=== PATIENT | male | born 1945 | race Caucasian/White ===

== ENCOUNTER 2016-11-11 23:14 | Inpatient (IN) | payer MEDICARE, OTHER ==
--- NOTE | ~2016-11-11 | DS ---
Discharge Summary [facility] [address] [place]. [address] NAME: LUCILA RAMOS JUNIOR : 43 STATUS : DIS IN PAT#: [id number] AGE: 71 ADM/REG DATE : 11/11/16 MR#: [id number] REPORT SERV DATE: 11/18/16 DICTATED BY: ANGELO FOREMAN DATE: 11/17/16 REPORT STATUS : Draft TRANSCRIBED BY: MODL DATE: 11/17/16 ADMISSION DATE: 11/11/2016 DISCHARGE DATE: 11/17/2016 CONSULTANTS: 1. Yasemin Manning MD, Interventional Pulmonary. 2. Enzo Padilla MD, Medical Oncology. 3. Cristina Vyas MD, Critical Care. 4. Manuel Brown MD, Vascular. 5. Shruthi Mg MD. DISCHARGE DIAGNOSES: 1. 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 2. Severe chronic obstructive pulmonary disease with exacerbation. 3. Acute hypoxic respiratory failure. 4. Abdominal aortic aneurysm. 5. Paroxysmal atrial fibrillation with rapid ventricular response. 6. T10 compression fracture. 7. Severe protein-calorie malnutrition. 8. History of coronary artery disease with previous PCI. 9. Iron deficiency anemia. 10.Previous nervous breakdown. HISTORY: This gentleman has had about four months of increasing shortness of breath with dyspnea on exertion, worsening cough, and starting to have hemoptysis up to a cup every day for the last couple of months. He has also had 15 to 25 pounds of unplanned weight loss in the last four months with subjective fever and chills. He also developed pain in his midback. He was resistant to coming to the hospital but finally did present to the hospital at [facility]. He was noted to have hypoxia with room air saturation 88%, white count 11.7, chest x-ray showing a right upper lobe cavitary mass. His initial blood gas was done in the emergency room on 32% oxygen, pH 7.35, PCO2 of 56, PO2 of 73, bicarbonate 30.5. Further imaging included a CT of the chest with contrast on 11/12/2016 showing right upper lobe 9 x 7 x 7.5 cavitary mass; small subpleural posterior basilar 0.6 cm diameter nodule seen on the CT; mediastinal adenopathy, 2.9 x 3.9 prevascular and right paratracheal; and a 2.3 x 1.9 cm nodule as well. Also, severe panacinar emphysema and an acute or subacute T10 compression fracture, and three-vessel coronary artery disease with evidence for stenting. HOSPITAL COURSE: Our admitting partner put him on Solu-Medrol, oxygen and breathing treatments, Rocephin and azithromycin, and ordered a sputum for AFB. Sputum for AFB on three occasions were negative. He was seen by Pulmonary, Dr. Manning, and Isaac Parham working with him. The patient was then felt a candidate for bronchoscopy, which was done by Dr. Manning with EBUS on 11/13/2016, which revealed a significant right upper lobe mass. The preliminary biopsy findings were squamous cell cancer. Postprocedure, the patient was felt to need to stay on Discharge Summary [address] [address] NAME: LUCILA RAMOS RITO : 43 STATUS : DIS IN PAT#: [id number] AGE: 71 ADM/REG DATE : 11/11/16 MR#: [id number] REPORT SERV DATE: 11/18/16 DICTATED BY: ANGELO FOREMAN DATE: 11/17/16 REPORT STATUS : Draft TRANSCRIBED BY: PRAKASH DATE: 11/17/16 the ventilator and moved to the intensive care where he was then followed by Dr. Vyas. The patient was easily extubated within the next day or so and able to move back out to the medical floor. Pathology did confirm squamous cell cancer of the lung. Dr. Enzo Padilla has seen the patient, wants to do an outpatient PET to complete part of the staging and then he will make decisions with the patient on therapy. Plain views of the abdomen revealed evidence of an abdominal aortic aneurysm. The radiologist estimated the dimensions up to 6.9 cm. Vascular Surgery, Dr. Manuel Brown, saw the patient. Dr. Brown indicated that before any intervention he wanted to make sure that the patient had responded to cancer therapy and had a prognosis suggesting a greater than 2- year life expectancy, then he would consider endovascular repair. The patient's hemoptysis resolved, his shortness of breath improved, but he was found to need continuous oxygen at 4 L nasal cannula. Those arrangements with Home Equipment have been made. Home Health has already been set up as well. The patient is ambulatory. His appetite is good. His T10 compression fracture pain is easily controlled by tramadol at this point in time. He has had paroxysms of atrial fibrillation with rapid ventricular response. On a beta- kelvin, it has improved. He is not sure if he has had this before. He has seen Dr. Mcmahon of Cardiology in the past. We are not recommending anticoagulation at the moment because of his untreated squamous cell cancer with recent hemoptysis. In the future, if he responds to therapy and has not had hemoptysis, anticoagulation risk versus benefit can be reassessed by his physician team. DISCHARGE MEDICATIONS: Lipitor 80 mg daily; Coreg 3.125 mg twice a day; Nu-Iron 150 mg p.o. b.i.d.; melatonin 3 mg over the counter at bedtime p.r.n. insomnia; nicotine patch over the counter 21 mg size, with strong encouragement to discontinue all nicotine; Florastor over the counter b.i.d. for two weeks; Anoro Ellipta 62.5/25 one puff daily; prednisone 20 mg daily for 5 more days; Pulmicort Respules nebulized b.i.d.; albuterol nebulized q.i.d. p.r.n. shortness of breath; Tylenol 650 q.4 hours p.r.n. mild pain; tramadol 50 mg q.i.d. p.r.n. intense pain, #25, no refill; aspirin 81 mg daily; nitroglycerin 0.4 mg sublingual p.r.n. chest pain. DISCHARGE INSTRUCTIONS: He is to follow up with Dr. Enzo Padilla in the office in the next week and there will be an outpatient PET scan. He can longitudinally follow up with Pulmonary, Dr. 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 Mcmahon; and if he is deemed a candidate, with vascular surgeon, Dr. Manuel Brown. He is going to be on 4 L oxygen continuously. I spent 44 minutes today with the patient in discharge planning. DICTATED BY: Angelo Foreman M.D. Discharge Summary [address] [address] NAME: LUCILA RAMOS JUNIOR : 43 STATUS : DIS IN [facility]#: [id number] AGE: 71 ADM/REG DATE : 11/11/16 MR#: [id number] REPORT SERV DATE: 11/18/16 DICTATED BY: ANGELO FOREMAN DATE: 11/17/16 REPORT STATUS : Draft TRANSCRIBED BY: PRAKASH DATE: 11/17/16 DIRK/PRAKASH Angelo Foreman M.D. / [id number] CC: Brandy Vazquez M.D. Darrell Johnson, M.D. Sachin V Phade, M.D. Pamela Sud, M.D.
--- NOTE | ~2016-11-11 | CN ---
Consultation Report [facility] [address] [place] [place]. [address] NAME: LUCILA RAMOS JUNIOR : 43 STATUS : DIS IN PAT#: [id number] AGE: 71 ADM/REG DATE : 11/11/16 MR#: [id number] REPORT SERV DATE: 11/18/16 DICTATED BY: MANUEL BROWN DATE: 11/15/16 REPORT STATUS : Draft TRANSCRIBED BY: MODАндрей DATE: 11/15/16 CONSULT NOTE DATE OF CONSULTATION: 11/15/2016 REASON FOR CONSULTATION: Evaluation for abdominal aortic aneurysm. INTERVENTIONAL SILO ERECTOR: Dr. Manning. BRIEF HISTORY: The patient is a 71-year-old gentleman with past medical history significant for tobacco abuse, coronary artery disease, status post myocardial infarction and hypertension, who was admitted to the hospital with weight loss, cough, and shortness of breath. He underwent workup and was found to have a cavitary right lung mass. He was diagnosed with lung cancer and it is thought that he has stage III or stage IV disease. In his workup, he was found to have an aortic aneurysm on a KUB. I was consulted for evaluation and treatment. The patient denies any complaints now. His coughing has improved. PAST MEDICAL HISTORY: COPD, coronary artery disease, and hypertension. SURGICAL HISTORY: Includes knee surgery and skin cancer. ALLERGIES: NONE. MEDICATIONS: Documented on the chart and were reviewed. SOCIAL HISTORY: He is a smoker. He quit drinking. He denies any drug use. His family is supportive and involved in his care. FAMILY HISTORY: Black lung. REVIEW OF SYSTEMS: A complete review of systems was performed and is negative with the exception of the aforementioned findings. PHYSICAL EXAMINATION: VITAL SIGNS: Documented on the chart and were reviewed. GENERAL: The patient is awake, alert, and oriented, in no apparent distress. HEAD AND NECK: Benign without any carotid bruits. HEART: Regular rate and rhythm. LUNGS: Clear, but he does have pursed lip breathing. ABDOMEN: Soft, nontender, nondistended with an easily palpable aortic aneurysm. EXTREMITIES: He has a normal complement of upper extremity pulses without any significant edema or ischemic ulcerations. He has palpable femoral, popliteal, and pedal pulses. He has no significant edema or ischemic ulcerations. Consultation Report [facility] [address] [place] [place]. [address] NAME: LUCILA RAMOS JUNIOR : 41 STATUS : DIS IN PAT#: [id number] AGE: 71 ADM/REG DATE : 11/11/16 MR#: [id number] REPORT SERV DATE: 11/18/16 DICTATED BY: MANUEL BROWN DATE: 11/15/16 REPORT STATUS : Draft TRANSCRIBED BY: MODL DATE: 11/15/16 NEUROLOGIC: Grossly nonfocal. MUSCULOSKELETAL: Otherwise benign. LABORATORY DATA: His laboratory investigations are fairly unremarkable. I reviewed his KUB and noted his aortic aneurysm. On x-ray, it was measured as 6.9 cm, although this is not often an accurate assessment. His CT imaging of his chest does not show any aneurysmal change of his thoracic aorta. His renal arteries are visualized, and there was a segment of infrarenal aorta that appears normal. ASSESSMENT AND PLAN: It looks like this gentleman has lung cancer that is likely stage III or stage IV. He was found to have an abdominal aortic aneurysm of unclear size, but that is likely greater than 5.5 cm in size. I introduced the risks, benefits, and alternatives of endovascular aortic aneurysm repair as well as open aneurysm repair. We talked about medical management, and we talked about his lung cancer. If his lung cancer has a poor prognosis or he would necessitate an open aneurysm repair, he needs simply an aspirin, statin, and smoking cessation. A CT, of course, would need to be performed to definitively set this plan. Having said that, the preliminary imaging would suggest that maybe he is indeed a candidate for endovascular repair. If his lung cancer prognosis is not that poor, we would simply have to weigh the risks of his aneurysm rupturing and him dying versus the mortality risk of his lung cancer. We have to weigh the morbidity as well as the mortality and ultimately helping the patient make the right decision. I will be available to follow along to help guide the therapy. The patient and his family seem to be fairly realistic about what is going on. CARPENTER PROTOTYPE/MODАндрей Manuel Brown M.D. / [id number] CC: Brandy Vazquez M.D.
--- NOTE | ~2016-11-11 | CN ---
Consultation Report [facility] [address] [place]. [address] NAME: PAUL HONEYCUTT JUNIOR : 43 STATUS : ADM IN [facility]#: [id number] AGE: 71 ADM/REG DATE : 11/11/16 MR#: [id number] REPORT SERV DATE: 11/12/16 DICTATED BY: BAKARI EDWARDS DATE: 11/12/16 REPORT STATUS : Draft TRANSCRIBED BY: MODL DATE: 11/12/16 CONSULTATION DATE OF CONSULTATION: 11/12/2016 CHIEF COMPLAINT: Shortness of breath in a patient with a right upper lobe cavitary lesion. HISTORY OF PRESENT ILLNESS: Mr. Paul Honeycutt is a cachectic-appearing 71-year-old white male with a past medical history significant for clinical COPD, ongoing tobacco dependency, and coronary artery disease, who presents to [facility] with complaints of dyspnea and weight loss. It should be noted that Mr. Honeycutt has not been hospitalized recently. The patient is not currently established with a photographic equipment technician. He does not usually require supplemental oxygen. He is on no nebulized medications. The patient has smoked cigarettes up until the time of presentation. He has smoked at least a pack a day for the last 60 years. He describes his exercise tolerance as being limited as of late. The patient states that over the last four to five months, he has had worsening dyspnea. During that time, he developed a cough that produced some hemoptysis. Despite this finding, he did not pursue medical care. Eventually, his hemoptysis decreased and he began to produce some dark-colored sputum. Also during this time, he had weight loss. He has also had subjective fever and chills. Eventually, his symptoms became persistent enough that he eventually presented to [facility]'s Emergency Room. Upon arrival, he was found to have a white blood cell count of 11,700. He eventually underwent a chest x-ray which revealed a right upper lobe cavitary mass. He was later sent to the CT scanner for a better evaluation of his right upper lobe lung mass. During this process when lying flat, he became extremely dyspneic. He did undergo arterial blood gas sampling, which demonstrated pH of 7.29, PaCO2 of 65, PaO2 of 56, and a bicarb of 30.6, on 44% FiO2. The patient was briefly placed on BiPAP therapy with improvement in his pulmonary status. For the aforementioned reasons, he has been referred to the Pulmonary Service for further assessment. Currently, Mr. Honeycutt is on a BiPAP with minimal settings and asking for the mass to be removed. He does confirm continuing production of brown sputum. He states that his shortness of breath has improved. He denies any wheezing in his chest. He denies any recent sick contacts. He denies any recent exposures to birds, mold, or fungus. He has not been institutionalized recently nor had outside travel. He does have known COPD and ongoing tobacco abuse. The patient does have known coronary artery disease with stenting. He currently denies any murmurs, angina, or palpitations. He does have some difficulty lying flat. In regard to constitutional symptoms, he has had subjective fevers in the past, but none recently. He denies any nausea or vomiting. He has some dull chest pain in the right. He Consultation Report [address] [address] NAME: PAUL HONEYCUTT RITO : 43 STATUS : ADM IN [facility]#: [id number] AGE: 71 ADM/REG DATE : 11/11/16 MR#: [id number] REPORT SERV DATE: 11/12/16 DICTATED BY: BAKARI EDWARDS DATE: 11/12/16 REPORT STATUS : Draft TRANSCRIBED BY: PRAKASH DATE: 11/12/16 currently denies any abdominal pain or edema. PAST MEDICAL HISTORY: 1. Coronary artery disease, status post stenting, clinical COPD. 2. Tobacco dependency-complicated. 3. Hypertension. PAST SURGICAL HISTORY: 1. Knee surgery. 2. Skin cancer excision. FAMILY HISTORY: The patient states that his father had lung cancer. SOCIAL HISTORY: The patient lives in [place], [place]. He is retired. 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 He has a son who is involved with his health care. TOBACCO/ALCOHOL: As previously mentioned, the patient smoked up until the time of presentation. He has smoked at least a pack a day for the last 60 years. He denies any recent alcohol or illicit drug use. MEDICATIONS: 1. Albuterol. 2. Aspirin 81 mg. 3. Atorvastatin 80 mg. 4. Carvedilol 3.125 mg. ALLERGIES: THE PATIENT HAS NO KNOWN DRUG ALLERGIES. REVIEW OF SYSTEMS: A complete review of systems was performed. The pertinent positives and negatives contained within the body of the HPI. PHYSICAL EXAMINATION: VITAL SIGNS: Blood pressure is 100/51, heart rate 94, T-max 97.8, respiratory rate is 22, and SpO2 is 94% on the BiPAP. GENERAL: Mr. Honeycutt is a cachectic-appearing 71-year-old white male who is not currently exhibiting any signs of acute distress. SKIN: Skin with appropriate texture and turgor. No rashes, lesions, or ulcers. HEENT: Head: Skull is normocephalic, atraumatic. Eyes: Sclerae anicteric. Ears: Auricles and tragus without pain to palpation. Nose: Bilateral nasal patency. Throat: Dentition not assessed at this time. NECK: Neck is supple. Trachea midline. No cervical lymphadenopathy appreciated. THORAX/LUNGS: Diminished breath sounds throughout. CARDIOVASCULAR: Regular rate and rhythm. No murmurs, rubs, or gallops. Consultation Report [address] [address] NAME: PAUL HONEYCUTT RITO : 43 STATUS : ADM IN [facility]#: [id number] AGE: 71 ADM/REG DATE : 11/11/16 MR#: [id number] REPORT SERV DATE: 11/12/16 DICTATED BY: BAKARI EDWARDS DATE: 11/12/16 REPORT STATUS : Draft TRANSCRIBED BY: PRAKASH DATE: 11/12/16 ABDOMEN: Soft. Nondistended. PERIPHERAL VASCULAR: No edema. MUSCULOSKELETAL: Full AROM and PROM in all joints. NEUROLOGIC: Cranial nerves 2 through 12 grossly intact. PSYCHIATRIC: The patient demonstrates good judgment and insight. ACCESSORY DATA: BNP is 87.9. White blood cell count is 10,700. Sputum culture demonstrates a few gram-positive cocci and rare gram-positive bacilli. PA and lateral of the chest reveals a 7.8 x 8.8 cavitary lesion in the right upper lung field. CT scan by my interpretation demonstrates emphysematous changes, apices worse in the lower lung espinal. In the right upper lobe, there is a cavitary lesion as well as an adjacent enlarged lymph node. IMPRESSION: 1. Acute on chronic hypoxemic, hypercapnic respiratory failure. 2. Right upper lobe cavitating lung mass. 3. Clinical chronic obstructive pulmonary disease. 4. Tobacco dependency-complicated. 5. Coronary artery disease, status post stenting. PLAN: 1. At this time, the patient has transiently been placed on BiPAP. He has improved markedly, and we will check for a followup ABG and likely discontinue this therapy. 2. In regard to the patient's right upper lobe cavitating lung mass, his differential diagnosis would include a bacterial etiology as well as a Mycobacterium process. Certainly, a fungal etiology is possible as well. More likely, this is a neoplasm, less likely would include sarcoid or rheumatoid nodules. Moving forward, we will likely pursue bronchoscopy for culture and tissue diagnosis. 3. In regard to the patient's clinical chronic obstructive pulmonary disease, we will place him on full armamentarium of nebulized medications. 4. In regard to the patient's tobacco dependency/complicated, we have counseled him more than 10 minutes on the benefits of smoking cessation. The aforementioned impression and plan has been discussed with Dr. Mg, who will follow further recommendations. We thank you for this consult and look forward to participating in the care of Mr. Paul Honeycutt. MANNY/PRAKASH Consultation Report [address] [address] NAME: PAUL HONEYCUTT RITO : 43 STATUS : ADM IN [facility]#: [id number] AGE: 71 ADM/REG DATE : 11/11/16 MR#: [id number] REPORT SERV DATE: 11/12/16 DICTATED BY: BAKARI EDWARDS DATE: 11/12/16 REPORT STATUS : Draft TRANSCRIBED BY: PRAKASH DATE: 11/12/16 Bakari Edwards PA-C / [id number] CC: Gurpreet Foreman M.D. NO PCP
--- NOTE | ~2016-11-11 | CN ---
Consultation Report [facility] [address] [place]. [address] NAME: LUCILA HONEYCUTT JUNIOR : 41 STATUS : ADM IN [facility]#: [id number] AGE: 71 ADM/REG DATE : 11/11/16 MR#: [id number] REPORT SERV DATE: 11/16/16 DICTATED BY: ENZO GALAVIZ DATE: 11/15/16 REPORT STATUS : Draft TRANSCRIBED BY: MODL DATE: 11/15/16 DATE OF CONSULTATION: 11/15/2016 REASON FOR CONSULTATION: Lung cancer. HISTORY: Mr. Honeycutt is a 71-year-old man with a long smoking history continues to smoke up until this admission, presenting with weight loss, cough, shortness of breath, abnormal chest x-ray. He had a CT scan of the chest on 11/12/2016 which revealed a 9 cm cavitary right upper lobe pulmonary mass with ipsilateral right-sided mediastinal adenopathy and milder left-sided paratracheal lymphadenopathy and small right supraclavicular suspicious lymph node all of which were concerning for primary lung cancer with dede metastases. He also had evidence of severe panacinar emphysema with a 0.6 cm posterior right basal lower lobe pulmonary nodule. There was also acute and subacute appearing moderate T10 compression fracture, but no other evidence of bone pathology, nonobstructive right nephrolithiasis was seen, as well as three-vessel coronary artery disease; and on review suggestion of an abdominal aortic aneurysm which was being evaluated by Vascular Surgery during this hospitalization. He went on to have bronchoscopy under the care of Dr. Manning on 11/13/2016 and biopsy of the right upper lobe cavitary mass confirmed squamous cell carcinoma moderately differentiated. The mediastinal nodes were not sampled. He has been using oxygen since this hospitalization but not prior. He had myocardial infarction in the past but he is status post cardiac stent x4 with no complications since that time. He denies any history of DVT, kidney disease, or strokes. He had about a 10-pound weight loss over the last few months with some decrease in appetite, but no nausea, vomiting, or headaches. He has had intermittent coughing of blood, but this has been small quantities. PAST MEDICAL HISTORY: Significant for COPD, coronary artery disease status post stents x4, hypertension, status post knee surgery, status post excision of skin cancer. ALLERGIES: NO KNOWN DRUG ALLERGIES. SOCIAL HISTORY: He lives in [place] near his family. He is a long time cigarette smoker averaging 1 pack per day for 50+ years. He does not drink alcohol. 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 FAMILY HISTORY: Father at 67 years of age of lung cancer and black lung. Mother at 84 years of age. MEDICATIONS: As per medication sheet. REVIEW OF SYSTEMS: A 13-point review of systems as per HPI. Otherwise, unremarkable. The patient does have moderate fatigue. PHYSICAL EXAMINATION: VITAL SIGNS: He is currently afebrile with normal vital signs. Consultation Report [place] [id number] [place]. [address] NAME: LUCILA HONEYCUTT JUNIOR : 41 STATUS : ADM IN [facility]#: [id number] AGE: 71 ADM/REG DATE : 11/11/16 MR#: [id number] REPORT SERV DATE: 11/16/16 DICTATED BY: ENZO GALAVIZ DATE: 11/15/16 REPORT STATUS : Draft TRANSCRIBED BY: PRAKASH DATE: 11/15/16 GENERAL: He is a thin elderly appearing man, in no acute distress. Oriented x3 with poor hearing acuity. HEENT: With NCAT and sclerae anicteric. NECK: No JVD or adenopathy. HEART: Regular rate and rhythm without murmurs, gallops, or rubs. LUNGS: With diffuse decreased breath sounds. Mild expiratory rhonchi. Decreased breath sounds in the right mid and upper lung without rubs. ABDOMEN: Scaphoid. Active bowel sounds. Soft and nontender. No palpable organomegaly or masses. No pulsatile mass in the abdomen. EXTREMITIES: Without cyanosis, clubbing, or edema with palpable pulses distally. LYMPHATIC: Lymph node survey without palpable cervical, supraclavicular, axillary, inguinal nodes. NEUROLOGIC: Grossly intact. The patient is sitting up in bed. IMPRESSION: Mr. Honeycutt is a man with a very large tumor in the right upper lobe and lung likely N2 dede involvement but possibly N3. He has severe COPD and does not appear to be a surgical candidate. He also has a significant aortic aneurysm detected in the abdomen which will need to be monitored and managed conservatively and there lung cancer is treated. I would recommend for the squamous carcinoma that he have a staging PET scan done on an outpatient basis early next week and then see me shortly thereafter to review it and decide if radiation consultation is warranted. If he has stage IV disease, then I would want to get that PD-L1 stain on the tumor and if it was over expressed, plan to use immunotherapy frontline where as if the PD-L1 was not over expressed, then standard palliative chemotherapy be considered and then using immunotherapy as second-line. If he had limited disease at stage III, then chemo radiation could certainly be considered given his physical condition and other medical issues. I would likely limit his chemotherapy to low-dose weekly Taxol/Carbo during radiation in that event. Family was in the room while I was meeting with the patient, they all agree to proceed as recommended awaiting the final results of the staging PET scan and then proceeding with treatment for his squamous carcinoma of the lung. He does have significant iron deficiency anemia could be exacerbated by blood loss associated with a large lung tumor. He needs to be started on iron supplementation, iron sulfate twice a day, or he could get on outpatient EZFE twice a day. We will monitor his CBC outpatient. During his cancer treatment he had a good response to the lung cancer treatment and his AAA could be re-evaluated by vascular surgeon at a later date. JOSE/PRAKASH Enzo Galaviz M.D. / [id number] Consultation Report [address] [address] NAME: LUCILA HONEYCUTT : 41 STATUS : ADM IN PAT#: [id number] AGE: 71 ADM/REG DATE : 11/11/16 MR#: [id number] REPORT SERV DATE: 11/16/16 DICTATED BY: ENZO GALAVIZ DATE: 11/15/16 REPORT STATUS : Draft TRANSCRIBED BY: PRAKASH DATE: 11/15/16 CC: Brandy Vazquez M.D.
--- NOTE | ~2016-11-11 | EGD ---
EGD REPORT [facility] [address] [address] NAME: PAUL RAMOS JUNIOR : 41 STATUS : ADM IN PAT#: [id number] AGE: 71 ADM/REG DATE : 11/11/16 MR#: [id number] REPORT SERV DATE: 11/13/16 DICTATED BY: JADA SMITH DATE: 11/13/16 REPORT STATUS : Draft TRANSCRIBED BY: [facility] DATE: 11/13/16 Pulmonology Patient Name: Paul Ramos Junior Procedure Date: 11/13/2016 4:49 PM Date of : 1945 Attending MD: AMADO SMITH MD Procedure Date No Time: 11/13/2016 Procedure: EBUS Bronchoscopy Indications: RUL cavitary lung lesion Providers: AMADO SMITH MD Referring MD: PREETI LOWE MD, NIKOLAI Cornelius Medicines: Lidocaine 2% 20 mL Complications: Multi-factorial respiratory failure: AECOPD, squamous cell carcinoma (New diagnosis), and post op respiratory failure (atalectasis, weakness). Procedure: Pre-Anesthesia Assessment: - A History and Physical has been performed. Patient meds and allergies have been reviewed. The risks and benefits of the procedure and the sedation options and risks were discussed with the patient. All questions were answered and informed consent was obtained. Patient identification and proposed procedure were verified prior to the procedure by the physician and the nurse in the pre-procedure area in the procedure room. Mental Status Examination: alert and oriented. Airway Examination: normal oropharyngeal airway. Respiratory Examination: poor air movement. CV Examination: normal and RRR, no murmurs, no S3 or S4. ASA Grade Assessment: IV - A patient with severe systemic disease that is a constant threat to life. After reviewing the risks and benefits, the patient was deemed in satisfactory condition to undergo the procedure. The anesthesia plan was to use general anesthesia. Immediately prior to administration of medications, the patient was re-assessed for adequacy to receive sedatives. The heart rate, respiratory rate, oxygen saturations, blood pressure, adequacy of pulmonary ventilation, and response to care were monitored throughout the procedure. The physical status of the patient was re-assessed after the procedure. After obtaining informed consent, the BF [id number] was introduced through the mouth, via the endotracheal tube (the patient was intubated for the procedure) and advanced to the tracheobronchial tree. the Bronchoscope was introduced through the and advanced to the. The procedure was accomplished without difficulty. The EGD REPORT [address] [address] NAME: PAUL RAMOS JUNIOR : 41 STATUS : ADM IN [facility]#: [id number] AGE: 71 ADM/REG DATE : 11/11/16 MR#: [id number] REPORT SERV DATE: 11/13/16 DICTATED BY: JADA SMITH DATE: 11/13/16 REPORT STATUS : Draft TRANSCRIBED BY: [employer] DATE: 11/13/16 patient tolerated the procedure well. Findings: The endotracheal tube is in good position. The visualized portion of the trachea is of normal caliber. The delfina is sharp. The tracheobronchial tree was examined to at least the first subsegmental level. Endobronchial lesion was noted in the RUL. Endobronchial biopsies were performed in the right upper lobe of the lung using a forceps and sent for histopathology examination. Four samples were obtained. Brushings were obtained in the right upper lobe of the lung and sent for routine cytology. One sample was obtained. Bronchoalveolar lavage was performed in the right upper lobe of the lung and sent for routine cytology. 30 mL of fluid were instilled. 10 mL were returned. The return was blood-tinged. EBUS TBNA of RUL lung mass x 6 passes for cytology The FiO2 was then lowered to less than 40% and argon plasma coagulation therapy was performed for hemostasis and destruction of endobronchial tumor. Impression: Rapid On-Site Evaluation (KRYSTLE): Preliminary cytology is POSITIVE for squamous cell carcinoma (final results are pending). Recommendation: - Await test results. - Chest X-ray post-procedure. - Patient will require ICU monitoring due to multi-factorial respiratory failure - I spoke with Dr. Vyas (Critical care medicine) and updated him. - Patient will be optimized in PACU prior to MICU transfer - Spoke with son and he has been updated. The family and patient were aware of the risk associated with bronchoscopy prior to procedure. - Intubation orders have been completed. - Medical Oncology consult tomorrow. - Further staging studies pending clinical course including MRI of the brain with and without contrast and outpatient PET/CT Attending Participation: I personally performed the entire procedure. AMADO SMITH MD 11/13/2016 6:53 PM This report has been signed electronically. Number of Addenda: 0 Note Initiated On: 11/13/2016 4:49 PM EGD REPORT [facility] [address] [place]. [address] NAME: PAUL RAMOS : 41 STATUS : ADM IN [facility]#: [id number] AGE: 71 ADM/REG DATE : 11/11/16 MR#: [id number] REPORT SERV DATE: 11/13/16 DICTATED BY: JADA SMITH DATE: 11/13/16 REPORT STATUS : Draft TRANSCRIBED BY: [employer] DATE: 11/13/16 [address] [place] [address]
--- NOTE | ~2016-11-11 | HP ---
History And Physical [place] [place]. [address] NAME: LUCILA RAMOS : 41 STATUS : ADM IN [facility]#: [id number] AGE: 71 ADM/REG DATE : 11/11/16 MR#: [id number] REPORT SERV DATE: 11/12/16 DICTATED BY: ANUP SANCHEZ DATE: 11/12/16 REPORT STATUS : Draft TRANSCRIBED BY: MODL DATE: 11/12/16 DATE OF ADMISSION: 11/11/2016 CHIEF COMPLAINT: A 71-year-old male with no primary care physician, presenting with weight loss, cough, and shortness of breath. HISTORY OF PRESENTING ILLNESS: The patient's history was obtained through an interview with the patient and his son. For about four or five months, the patient has had increasing shortness of breath characterized by dyspnea on exertion, but he also finds that now he cannot lay down flat because he begins to smother. He has developed at first a cough that was productive of blood. Sometimes he would fill a cup of blood every day and for about two months, he was coughing up blood and then it stopped, and then for the last two months since then, he has just been coughing up a brown- yellow sputum with no further blood in it. He has lost about 25 pounds in the last four months. He has had fevers and chills. At first, he has been "too stubborn" to come to the hospital according to his son, but finally was feeling so ill that he felt he had to come. He describes increasing upper back discomfort felt inside of his lungs radiating to his shoulder blades, a sharp quality, up to 10/10 severity. No nausea or vomiting. No diarrhea. He has had recent onset of lower extremity edema. REVIEW OF SYSTEMS: Otherwise, a 14-point review of systems was obtained and was negative. PAST MEDICAL HISTORY: 1. COPD. 2. Coronary artery disease with history of four stents placed by Dr. Mcmahon. 3. Hypertension. 4. No previous pneumonia history. PAST SURGICAL HISTORY: 1. Knee surgery. 2. Skin cancer. ALLERGIES: NO KNOWN DRUG ALLERGIES. SOCIAL HISTORY: The patient is a smoker. Quit alcohol. Lives in [place], [place], alone. He is retired. His son lives next door. FAMILY HISTORY: Father at 67 years of age of lung cancer and "black lung." Mother History And Physical [address] [place]. [address] NAME: LUCILA RAMOS : 41 STATUS : ADM IN PAT#: [id number] AGE: 71 ADM/REG DATE : 11/11/16 MR#: [id number] REPORT SERV DATE: 11/12/16 DICTATED BY: ANUP SANCHEZ DATE: 11/12/16 REPORT STATUS : Draft TRANSCRIBED BY: MODL DATE: 11/12/16 at 82 years of age of being "tired out." CURRENT MEDICATIONS: Unknown at this time. We have requested pharmacy to investigate a medication list. PHYSICAL EXAMINATION: VITAL SIGNS: Temperature 98.5, pulse 82, blood pressure 137/64, respiratory rate 22, O2 saturation 88% on room air. GENERAL: A pleasant, cooperative male. He has the appearance of cachexia, but is in distress from shortness of breath, bracing his shoulders to help with breathing. HEENT: Pupils equal, round, and reactive to light. No conjunctival pallor. No scleral icterus. Nares are patent. Oropharynx is clear of obstruction. Moist mucous membranes. NECK: Trachea midline. No thyromegaly. LYMPH: No cervical lymphadenopathy. No supraclavicular lymphadenopathy. RESPIRATORY: Inspiratory and expiratory wheezes auscultated throughout that predominates. The right upper lung does have diminished breath sounds compared to other parts of the lung, but I do not appreciate any focal egophony. There are scattered rhonchi. No rales. The patient has a labored respiratory effort. CARDIOVASCULAR: Regular rate and rhythm. No murmurs, rubs, or gallops. The patient does have pitting edema around his ankles symmetrically. ABDOMEN: Soft, nontender, nondistended. Normal bowel sounds auscultated throughout. No hepatosplenomegaly. DERMATOLOGICAL: Warm and dry extremities. No pallor, no cyanosis. PSYCHIATRIC: Normal affect. Good mood. Alert and oriented x3. LABORATORY DATA: White blood cell count 11.7, hemoglobin 10.6, hematocrit 33.9, platelets 330. Sodium 139, potassium 4.7, chloride 102, bicarb 34, BUN 10, creatinine 0.73, glucose 98, brain natriuretic peptide 76. Troponin negative. INR 1.0. ABG demonstrates pH 7.35, a PaCO2 of 56, a PaO2 of 73, and a bicarb of 30. STUDIES: 1. Chest x-ray by my own evaluation shows a cavitary right upper lung mass and infiltrate. 2. EKG by my own evaluation shows sinus rhythm, premature atrial complexes, left axis deviation. ASSESSMENT AND PLAN: 1. Right upper lung cavitary lung disease. Check blood cultures. Check sputum culture. Start empiric IV antibiotics. Differential diagnosis could be tuberculosis, cancer, or lung abscess. The patient unable to lie down right now because of shortness of breath for CT scan, so we will try again to obtain a CT scan with IV contrast on the morning of 11/12/2016. We will also check AFB for tuberculosis. Obtain a Pulmonary consult. 2. Hypoxic and hypercapnic respiratory failure. Provide supportive care. 3. Chronic obstructive pulmonary disease exacerbation. Place on IV Solu-Medrol and duo nebulizers. 4. A 25-pound weight loss. History And Physical [address] [address] NAME: LUCILA RAMOS : 41 STATUS : ADM IN [facility]#: [id number] AGE: 71 ADM/REG DATE : 11/11/16 MR#: [id number] REPORT SERV DATE: 11/12/16 DICTATED BY: ANUP SANCHEZ DATE: 11/12/16 REPORT STATUS : Draft TRANSCRIBED BY: PRAKASH DATE: 11/12/16 ABBY/PARKASH Anup Sanchez M.D. / [id number] CC: Michael Kirkpatrick M.D.
[2016-11-11 18:50] LABS: BASOPHILS 0.3 %; BASOPHILS ABSOLUTE 0.03 10/3/uL (0.0-0.16); EOSINOPHILS 2.3 %; EOSINOPHILS ABSOLUTE 0.27 10/3/uL (0.0-0.53); HEMATOCRIT 33.9 % (40.0-51.0); HEMOGLOBIN 10.6 g/dL (13.6-17.8); IMMATURE GRANULOCYTES 0.2 %; IMMATURE GRANULOCYTES ABSOLUTE 0.02 10/3/uL (0.0-0.11); LYMPHOCYTES 15.6 %; LYMPHOCYTES ABSOLUTE 1.83 10/3/uL (0.67-4.30); MEAN CORPUS HGB CONC 31.3 g/dL (32.0-36.0); MEAN CORPUSCULAR HEMOGLOB 23.2 pg (26.0-34.0); MEAN CORPUSCULAR VOLUME 74.2 fL (80-100); MEAN PLATELET VOLUME 8.8 fL (9.2-13.0); MONOCYTES 7.8 %; MONOCYTES ABSOLUTE 0.92 10/3/uL (0.21-1.20); NEUTROPHILS 73.8 %; NEUTROPHILS ABSOLUTE 8.67 10/3/uL (2.02-8.40); PLATELET COUNT 330 10/3/uL (150-400); RBC DISTRIBUTION WIDTH 19.6 % (12.0-16.0); RED CELL COUNT 4.57 10/6/uL (4.7-6.1); WHITE BLOOD CELLS 11.7 10/3/uL (4.5-10.5)
[2016-11-11 18:51] LABS: MANUAL DIFF NO %
[2016-11-11 18:57] LABS: PARTIAL THROMBO TIME 31.2 SEC (22.5-37.2); PROTIME (NOT ORD) 13.2 SEC (12.0-14.5)
[2016-11-11 19:08] LABS: BUN (BLOOD UREA NITROGEN) 10 MG/DL (6-23); CALCIUM, SERUM 9.3 MG/DL (8.5-10.4); CHEST PAIN PROFILE TAT 0 Hrs 22 Mins; CHLORIDE, SERUM 102 MMOL/L (96-112); CO2 (CARBON DIOXIDE) 34 MMOL/L (24-34); CREATININE 0.73 MG/DL (0.70-1.30); GFR AFRICAN AMERICAN 107 ML/MIN (>=60); GFR NON AFRICAN AMERICAN 92 ML/MIN (>=60); GLUCOSE, SERUM 98 MG/DL (60-99); POTASSIUM, SERUM 4.7 MMOL/L (3.5-5.3); SODIUM, SERUM 139 MMOL/L (135-148); TROPONIN I <0.02 NG/ML (<0.05)
[2016-11-11 23:27] LABS: ALLENS TEST Pos; BE (BASE EXCESS) 3.8 MEQ/L (0 +/- 2.5); CARBOXYHEMOGLOBIN 2.9 % (0-3); DEVICE NC; HCO3 (ACTUAL BICARBONATE) 30.5 MEQ/L (23-27); HEMOBLOGIN CONTENT 11.3 G/DL (14-18); INSTRUMENT SERIAL # 8087; METHEMOGLOBIN 0.1 % (0-3); O2 CONTENT 14.4 VOL% (18-24); OPERATOR ID 23712; PCO2 (CO2 TENSION) 56 MMHG (35-45); PO2 (O2 TENSION) 73 MMHG (79-93); SAMPLE Arterial; pH 7.35 (7.37-7.43)
[2016-11-11] MEDS ORDERED: *UNABLE1 (23:49)
[2016-11-12 07:15] LABS: BASOPHILS 0.1 %; BASOPHILS ABSOLUTE 0.01 10/3/uL (0.0-0.16); EOSINOPHILS 0.2 %; EOSINOPHILS ABSOLUTE 0.02 10/3/uL (0.0-0.53); HEMATOCRIT 33.6 % (40.0-51.0); HEMOGLOBIN 10.2 g/dL (13.6-17.8); IMMATURE GRANULOCYTES 0.2 %; IMMATURE GRANULOCYTES ABSOLUTE 0.02 10/3/uL (0.0-0.11); LYMPHOCYTES 5.4 %; LYMPHOCYTES ABSOLUTE 0.57 10/3/uL (0.67-4.30); MEAN CORPUS HGB CONC 30.4 g/dL (32.0-36.0); MEAN CORPUSCULAR HEMOGLOB 22.8 pg (26.0-34.0); MEAN PLATELET VOLUME 8.7 fL (9.2-13.0); MONOCYTES 1.5 %; MONOCYTES ABSOLUTE 0.16 10/3/uL (0.21-1.20); NEUTROPHILS 92.6 %; NEUTROPHILS ABSOLUTE 9.87 10/3/uL (2.02-8.40); PLATELET COUNT 298 10/3/uL (150-400); RBC DISTRIBUTION WIDTH 19.6 % (12.0-16.0); RED CELL COUNT 4.48 10/6/uL (4.7-6.1); WHITE BLOOD CELLS 10.7 10/3/uL (4.5-10.5)
[2016-11-12 07:18] LABS: INTERNATIONAL NORMAL RATI 1.1 UNITS (-); MANUAL DIFF NO %; PROTIME (NOT ORD) 13.6 SEC (12.0-14.5)
[2016-11-12 07:36] LABS: A/G RATIO 0.6 (0.7-1.9); ALBUMIN 2.4 G/DL (3.5-5.0); ALKALINE PHOSPHATASE 110 U/L (45-117); BUN (BLOOD UREA NITROGEN) 10 MG/DL (6-23); CALCIUM, SERUM 9.1 MG/DL (8.5-10.4); CHLORIDE, SERUM 100 MMOL/L (96-112); CO2 (CARBON DIOXIDE) 30 MMOL/L (24-34); CREATININE 0.74 MG/DL (0.70-1.30); GFR AFRICAN AMERICAN 106 ML/MIN (>=60); GFR NON AFRICAN AMERICAN 92 ML/MIN (>=60); GLUCOSE, SERUM 112 MG/DL (60-99); PHOSPHORUS, SERUM 3.3 MG/DL (2.5-4.5); POTASSIUM, SERUM 4.5 MMOL/L (3.5-5.3); SGOT(AST) 13 U/L (5-40); SGPT(ALT) 16 U/L (5-65); SODIUM, SERUM 135 MMOL/L (135-148); TOTAL BILIRUBIN 0.3 MG/DL (0-1.2); TOTAL PROTEIN 6.4 G/DL (6.0-8.5); TROPONIN I <0.02 NG/ML (<0.05)
[2016-11-12] MEDS ORDERED: ASAB PO (08:47)
[2016-11-12] MEDS ORDERED: NITROSTAT0.4 MG PO (08:48)
[2016-11-12] MEDS ORDERED: LIPITOR80 MG PO (08:48)
[2016-11-12] MEDS ORDERED: TYLENOL PO (08:48)
[2016-11-12] MEDS ORDERED: COREG3 PO (08:48)
[2016-11-12] MEDS ORDERED: ALBUTEROL0.083 % INH (08:49)
[2016-11-12 09:25] LABS: ALLENS TEST Pos; BE (BASE EXCESS) 2.7 MEQ/L (0 +/- 2.5); CARBOXYHEMOGLOBIN 1.3 % (0-3); HCO3 (ACTUAL BICARBONATE) 30.6 MEQ/L (23-27); HEMOBLOGIN CONTENT 11.6 G/DL (14-18); INSTRUMENT SERIAL # 35151; METHEMOGLOBIN 0.4 % (0-3); O2 CONTENT 13.6 VOL% (18-24); PCO2 (CO2 TENSION) 65 MMHG (35-45); PO2 (O2 TENSION) 56 MMHG (79-93); SAMPLE Arterial; pH 7.29 (7.37-7.43)
[2016-11-12 10:28] LABS: PROCALCITONIN <0.05 ng/mL (<0.5)
[2016-11-12 11:41] LABS: ALLENS TEST Pos; BE (BASE EXCESS) 4.3 MEQ/L (0 +/- 2.5); BIPAP 15/5 cm.H2O; CARBOXYHEMOGLOBIN 0.7 % (0-3); HCO3 (ACTUAL BICARBONATE) 31.9 MEQ/L (23-27); HEMOBLOGIN CONTENT 10.8 G/DL (14-18); INSTRUMENT SERIAL # 35151; METHEMOGLOBIN 0.5 % (0-3); O2 CONTENT 14.5 VOL% (18-24); OPERATOR ID 35798; PCO2 (CO2 TENSION) 65 MMHG (35-45); PO2 (O2 TENSION) 90 MMHG (79-93); SAMPLE Arterial; pH 7.31 (7.37-7.43)
[2016-11-13 04:58] LABS: BASOPHILS 0.1 %; BASOPHILS ABSOLUTE 0.01 10/3/uL (0.0-0.16); EOSINOPHILS 0.8 %; EOSINOPHILS ABSOLUTE 0.06 10/3/uL (0.0-0.53); HEMATOCRIT 29.8 % (40.0-51.0); HEMOGLOBIN 9.2 g/dL (13.6-17.8); IMMATURE GRANULOCYTES 0.1 %; IMMATURE GRANULOCYTES ABSOLUTE 0.01 10/3/uL (0.0-0.11); LYMPHOCYTES 18.5 %; LYMPHOCYTES ABSOLUTE 1.42 10/3/uL (0.67-4.30); MANUAL DIFF NO %; MEAN CORPUS HGB CONC 30.9 g/dL (32.0-36.0); MEAN CORPUSCULAR HEMOGLOB 23.2 pg (26.0-34.0); MEAN CORPUSCULAR VOLUME 75.3 fL (80-100); MONOCYTES 8.5 %; MONOCYTES ABSOLUTE 0.65 10/3/uL (0.21-1.20); NEUTROPHILS ABSOLUTE 5.52 10/3/uL (2.02-8.40); PLATELET COUNT 269 10/3/uL (150-400); RBC DISTRIBUTION WIDTH 19.5 % (12.0-16.0); RED CELL COUNT 3.96 10/6/uL (4.7-6.1); WHITE BLOOD CELLS 7.7 10/3/uL (4.5-10.5)
[2016-11-13 08:47] LABS: % IRON SAT 10 % (20-50); FERRITIN 114 NG/ML (26-388); IRON BINDING CAPACITY 205 MCG/DL (250-450); IRON, SERUM 20 MCG/DL (35-150)
[2016-11-13 19:29] LABS: ALLENS TEST Pos; BE (BASE EXCESS) 5.3 MEQ/L (0 +/- 2.5); CARBOXYHEMOGLOBIN 0.3 % (0-3); HCO3 (ACTUAL BICARBONATE) 35.3 MEQ/L (23-27); HEMOBLOGIN CONTENT 10.5 G/DL (14-18); INSTRUMENT SERIAL # 11843; METHEMOGLOBIN 0.5 % (0-3); MODE CMV; O2 CONTENT 15.5 VOL% (18-24); OPERATOR ID 23712; PCO2 (CO2 TENSION) 90 MMHG (35-45); PO2 (O2 TENSION) 370 MMHG (79-93); SAMPLE Arterial; TIDAL VOLUME 500 ML; pH 7.21 (7.37-7.43)
[2016-11-13 20:06] LABS: BE (BASE EXCESS) 4.8 MEQ/L (0 +/- 2.5); HCO3 (ACTUAL BICARBONATE) 32.2 MEQ/L (23-27); INSTRUMENT SERIAL # 11843; PCO2 (CO2 TENSION) 65 MMHG (35-45); PO2 (O2 TENSION) 61 MMHG (79-93); pH 7.32 (7.37-7.43)
[2016-11-13 20:07] LABS: ALLENS TEST Pos; CARBOXYHEMOGLOBIN 0.5 % (0-3); HEMOBLOGIN CONTENT 9.9 G/DL (14-18); METHEMOGLOBIN 0.5 % (0-3); MODE CMV; O2 CONTENT 12.2 VOL% (18-24); OPERATOR ID 23712; SAMPLE Arterial; TIDAL VOLUME 600 ML
[2016-11-14 04:03] LABS: ALLENS TEST Pos; BE (BASE EXCESS) 11.3 MEQ/L (0 +/- 2.5); HCO3 (ACTUAL BICARBONATE) 37.7 MEQ/L (23-27); HEMOBLOGIN CONTENT 10.2 G/DL (14-18); INSTRUMENT SERIAL # 8083; METHEMOGLOBIN 0.1 % (0-3); MODE CMV; O2 CONTENT 13.4 VOL% (18-24); OPERATOR ID 17589; PCO2 (CO2 TENSION) 60 MMHG (35-45); PO2 (O2 TENSION) 71 MMHG (79-93); SAMPLE Arterial; TIDAL VOLUME 450 ML; pH 7.42 (7.37-7.43)
[2016-11-14 13:22] LABS: BUN (BLOOD UREA NITROGEN) 12 MG/DL (6-23); CALCIUM, SERUM 8.8 MG/DL (8.5-10.4); CHLORIDE, SERUM 97 MMOL/L (96-112); CO2 (CARBON DIOXIDE) 34 MMOL/L (24-34); CREATININE 0.76 MG/DL (0.70-1.30); GFR AFRICAN AMERICAN 105 ML/MIN (>=60); GFR NON AFRICAN AMERICAN 91 ML/MIN (>=60); GLUCOSE, SERUM 93 MG/DL (60-99); POTASSIUM, SERUM 3.7 MMOL/L (3.5-5.3); SODIUM, SERUM 137 MMOL/L (135-148)
[2016-11-15 06:03] LABS: BASOPHILS 0.2 %; BASOPHILS ABSOLUTE 0.01 10/3/uL (0.0-0.16); EOSINOPHILS 0.2 %; EOSINOPHILS ABSOLUTE 0.01 10/3/uL (0.0-0.53); HEMATOCRIT 28.5 % (40.0-51.0); HEMOGLOBIN 8.8 g/dL (13.6-17.8); IMMATURE GRANULOCYTES 0.2 %; IMMATURE GRANULOCYTES ABSOLUTE 0.01 10/3/uL (0.0-0.11); LYMPHOCYTES 16.3 %; LYMPHOCYTES ABSOLUTE 0.93 10/3/uL (0.67-4.30); MEAN CORPUS HGB CONC 30.9 g/dL (32.0-36.0); MEAN CORPUSCULAR HEMOGLOB 23.1 pg (26.0-34.0); MEAN CORPUSCULAR VOLUME 74.8 fL (80-100); MEAN PLATELET VOLUME 8.9 fL (9.2-13.0); MONOCYTES 9.3 %; MONOCYTES ABSOLUTE 0.53 10/3/uL (0.21-1.20); NEUTROPHILS 73.8 %; NEUTROPHILS ABSOLUTE 4.23 10/3/uL (2.02-8.40); PLATELET COUNT 247 10/3/uL (150-400); RBC DISTRIBUTION WIDTH 19.5 % (12.0-16.0); RED CELL COUNT 3.81 10/6/uL (4.7-6.1); WHITE BLOOD CELLS 5.7 10/3/uL (4.5-10.5)
[2016-11-15 06:11] LABS: MANUAL DIFF NO %
[2016-11-15 06:15] LABS: BUN (BLOOD UREA NITROGEN) 12 MG/DL (6-23); CALCIUM, SERUM 8.9 MG/DL (8.5-10.4); CHLORIDE, SERUM 99 MMOL/L (96-112); CO2 (CARBON DIOXIDE) 35 MMOL/L (24-34); CREATININE 0.73 MG/DL (0.70-1.30); GFR AFRICAN AMERICAN 107 ML/MIN (>=60); GFR NON AFRICAN AMERICAN 92 ML/MIN (>=60); GLUCOSE, SERUM 86 MG/DL (60-99); PHOSPHORUS, SERUM 2.5 MG/DL (2.5-4.5); POTASSIUM, SERUM 3.5 MMOL/L (3.5-5.3); SODIUM, SERUM 138 MMOL/L (135-148)
[2016-11-15 06:24] LABS: ANISOCYTOSIS 1+ (5-10/OIF) (0-5/OIF); HYPOCHROMIA 1+ (3-10/OIF) (0-2/OIF); MICROCYTES 1+ (5-10/OIF) (0-5/OIF)
[2016-11-15 06:25] LABS: ELLIPTOCYTES 1+ (3-10/OIF) (0-2/OIF)
[2016-11-15 06:26] LABS: BURR CELLS 1+ (3-10/OIF) (0-2/OIF); PLATELET ESTIMATE ADQ (ADEQUATE)
[2016-11-16 05:11] LABS: BASOPHILS 0.2 %; BASOPHILS ABSOLUTE 0.01 10/3/uL (0.0-0.16); EOSINOPHILS 0.3 %; EOSINOPHILS ABSOLUTE 0.02 10/3/uL (0.0-0.53); HEMATOCRIT 30.3 % (40.0-51.0); HEMOGLOBIN 9.4 g/dL (13.6-17.8); IMMATURE GRANULOCYTES 0.3 %; IMMATURE GRANULOCYTES ABSOLUTE 0.02 10/3/uL (0.0-0.11); LYMPHOCYTES 16.4 %; LYMPHOCYTES ABSOLUTE 1.05 10/3/uL (0.67-4.30); MANUAL DIFF NO %; MEAN CORPUSCULAR HEMOGLOB 23.2 pg (26.0-34.0); MEAN CORPUSCULAR VOLUME 74.8 fL (80-100); MEAN PLATELET VOLUME 9.2 fL (9.2-13.0); MONOCYTES 11.3 %; MONOCYTES ABSOLUTE 0.72 10/3/uL (0.21-1.20); NEUTROPHILS 71.5 %; NEUTROPHILS ABSOLUTE 4.58 10/3/uL (2.02-8.40); PLATELET COUNT 289 10/3/uL (150-400); RBC DISTRIBUTION WIDTH 19.5 % (12.0-16.0); RED CELL COUNT 4.05 10/6/uL (4.7-6.1); WHITE BLOOD CELLS 6.4 10/3/uL (4.5-10.5)
[2016-11-16 05:16] LABS: BUN (BLOOD UREA NITROGEN) 11 MG/DL (6-23); CALCIUM, SERUM 8.9 MG/DL (8.5-10.4); CHLORIDE, SERUM 98 MMOL/L (96-112); CO2 (CARBON DIOXIDE) 38 MMOL/L (24-34); CREATININE 0.77 MG/DL (0.70-1.30); GFR AFRICAN AMERICAN 104 ML/MIN (>=60); GFR NON AFRICAN AMERICAN 90 ML/MIN (>=60); GLUCOSE, SERUM 102 MG/DL (60-99); POTASSIUM, SERUM 3.8 MMOL/L (3.5-5.3); SODIUM, SERUM 139 MMOL/L (135-148)
[2016-11-17] MEDS ORDERED: NUIRONCAP PO (10:41)
[2016-11-17] MEDS ORDERED: MELA3 PO (10:42)
[2016-11-17] MEDS ORDERED: HABIT21 TOP (10:42)
[2016-11-17] MEDS ORDERED: FLORASTOR250 MG PO (10:42)
[2016-11-17] MEDS ORDERED: P20 PO (10:43)
[2016-11-17] MEDS ORDERED: PULRESP1 INH (10:44)
[2016-11-17] MEDS ORDERED: T PO (10:45)
[2016-11-17] MEDS ORDERED: ULTRAM50 PO (10:45)
== END 2016-11-17 13:57 | disposition home health service (06) | DRG 166 ==
LOC: ER 23:14 → 6NO 23:41 → SDC/OF 11-13 18:36 → MIC 11-13 18:43 → 6NO 11-14 20:24
PROVIDERS: Emergency Medicine; Hospitalist; Internal Medicine; Internal Medicine Pulmonary Disease; Physician Assistant Medical
PROC: 0B948ZX Drainage of Right Upper Lobe Bronchus, Via Natural or Artificial Opening Endoscopic, Diagnostic (ICD-10-PCS; principal; 2016-11-13 12:30)
PROC: 0BBC8ZX Excision of Right Upper Lung Lobe, Via Natural or Artificial Opening Endoscopic, Diagnostic (ICD-10-PCS; 2016-11-13 12:30)
PROC: 0B948ZX Drainage of Right Upper Lobe Bronchus, Via Natural or Artificial Opening Endoscopic, Diagnostic (ICD-10-PCS; 2016-11-13 12:30)
DX: C34.11 Malignant neoplasm of upper lobe, right bronchus or lung (principal); J96.21 Acute and chronic respiratory failure with hypoxia; E43 Unspecified severe protein-calorie malnutrition; R04.2 Hemoptysis; R64 Cachexia; I48.0 Paroxysmal atrial fibrillation; J44.1 Chronic obstructive pulmonary disease with (acute) exacerbation; M48.54XA Collapsed vertebra, not elsewhere classified, thoracic region, initial encounter for fracture; J96.22 Acute and chronic respiratory failure with hypercapnia; Z68.1 Body mass index [BMI] 19.9 or less, adult; F17.210 Nicotine dependence, cigarettes, uncomplicated; J98.4 Other disorders of lung; I25.10 Atherosclerotic heart disease of native coronary artery without angina pectoris; I10 Essential (primary) hypertension; I71.4 Abdominal aortic aneurysm, without rupture; D50.9 Iron deficiency anemia, unspecified; I25.2 Old myocardial infarction; Z80.1 Family history of malignant neoplasm of trachea, bronchus and lung; Z79.899 Other long term (current) drug therapy; Z79.82 Long term (current) use of aspirin; Z95.5 Presence of coronary angioplasty implant and graft; Z85.828 Personal history of other malignant neoplasm of skin
CPT/HCPCS: 31720; 36600; 71010; 71020; 71260; 74000; 80048; 80053; 82607; 82728; 82805; 82962; 83540; 83550; 83605; 83735; 83880; 84100; 84145; 84443; 84484; 85025; 85610; 85730; 87015; 87040; 87070; 87116; 87205; 87449; 87641; 88112; 88173; 88305; 88333; 93005; 94002; 94003; 94640; 94660; 96374; 96375; 99285; A9270-GY; C1725; C9113; J0456; J0692; J2250; J2370; J2405; J2543; J2710; J2920; J3010; J3370; P9045; Q9967